=== PATIENT | male | born 1940 | race Caucasian/White ===

== ENCOUNTER → 2019-06-08 | Outpatient (CLI) | payer MEDICARE | END | disposition home or self-care (01) | LOC: ROC 05-20 10:49 | PROVIDERS: ATTEND Radiology Radiation Oncology | DX: C44.319 Basal cell carcinoma of skin of other parts of face (principal) | CPT/HCPCS: G0463 ==

== ENCOUNTER 2019-08-26 07:32 | Outpatient (CLI) | payer MEDICARE | END 2019-08-26 23:59 | disposition home or self-care (01) | LOC: ROC 07:32 | PROVIDERS: ATTEND Radiology Radiation Oncology | DX: C44.310 Basal cell carcinoma of skin of unspecified parts of face (principal) | CPT/HCPCS: G0463 ==

== ENCOUNTER 2019-10-07 08:35 | Outpatient (CLI) | payer MEDICARE | END 2019-10-07 23:59 | disposition home or self-care (01) | LOC: ROC 08:35 | PROVIDERS: ATTEND Radiology Radiation Oncology | DX: Z08 Encounter for follow-up examination after completed treatment for malignant neoplasm (principal); C44.310 Basal cell carcinoma of skin of unspecified parts of face | CPT/HCPCS: G0463 ==

== ENCOUNTER 2019-12-09 07:43 | Outpatient (CLI) | payer MEDICARE | END 2019-12-09 23:59 | disposition home or self-care (01) | LOC: ROC 07:43 | PROVIDERS: ATTEND Radiology Radiation Oncology | DX: C44.310 Basal cell carcinoma of skin of unspecified parts of face (principal) | CPT/HCPCS: G0463 ==

== ENCOUNTER → 2020-06-14 | Outpatient (CLI) | payer MEDICARE | END | disposition home or self-care (01) | LOC: ROC 07:52 | PROVIDERS: ATTEND Radiology Radiation Oncology | DX: Z08 Encounter for follow-up examination after completed treatment for malignant neoplasm (principal); C44.310 Basal cell carcinoma of skin of unspecified parts of face | CPT/HCPCS: G2012 ==